=== PATIENT | female | born 2000 | race Caucasian/White ===

== ENCOUNTER 2023-05-12 09:55 | Outpatient (OUT) | payer BC, OTHER, SELFPAY ==
--- NOTE | 2023-05-12 09:57 | US_ITS ---
[address] [address] Patient Name: MENDY LUKE MRN: [id number] date: 2000 Sex: F Assigned Patient Location: US Current Patient Location: US Accession/Order Number: [id number] Exam Date: 05/12/2023 09:56 Report Date: 05/12/2023 10:39 At the request of: LAURA SCHULTZ Procedure: US OB growth EXAMINATION: US OB growth HISTORY: SIZE INCONSISTENT WITH DATES COMPARISON: Ultrasound growth 04/14/2023 FINDINGS: Heart Rate: 143.0 bpm Number: 1.0 Position: BREECH Amniotic Fluid Volume: 16.2 cm Maximum Vertical Pocket: 5.4 cm BIOMETRY: BPD: 7.3 cm cm; 29 weeks 2 days HC: 27.2 cmcm; 29 weeks 5 days AC: 24.8 cm cm; 29 weeks 0 days FL: 5.1 cm cm; 27 weeks 3 days EFW: 1243.1 grams; 47% FL/AC: 20.6 FL/BPD: 70.0 HC/AC: 1.1 GESTATIONAL AGE: Age by EDC: 28 weeks 2 days KRISS by EDC: 08/02/2023 Age by US: 28 weeks 6 days KRISS by US: 07/29/2023 IMPRESSION: 1. Single live intrauterine with growth detailed above. Electronically authenticated by: JOJO BOYCE Date: 05/12/2023 10:39
== END 2023-05-12 09:56 ==
PROVIDERS: Visit Provider Obstetrics & Gynecology
DX: O28.5 Abnormal chromosomal and genetic finding on antenatal screening of mother (principal)
CPT/HCPCS: 76816

== ENCOUNTER 2023-06-08 07:23 | Outpatient (OUT) | payer BC, OTHER, SELFPAY ==
--- NOTE | 2023-06-08 14:54 | US_ITS ---
[address] [address] Patient Name: MENDY LUKE MRN: [id number] date: 2000 Sex: F Assigned Patient Location: US Current Patient Location: US Accession/Order Number: [id number] Exam Date: 06/08/2023 14:55 Report Date: 06/08/2023 16:28 At the request of: LAURA SCHULTZ Procedure: US OB growth EXAMINATION: US OB growth HISTORY: POSITIVE SCREENING FOR TRISOMY 21 COMPARISON: Ultrasound OB growth 05/12/2023 FINDINGS: Heart Rate: 144.0 bpm Number: 1.0 Position: CEPHALIC Amniotic Fluid Volume: 19.7 cm Maximum Vertical Pocket: 8.0 cm BIOMETRY: BPD: 8.2 cm cm; 33 weeks 0 days; 68% HC: 30.2 cmcm; 33 weeks 4 days; 51% AC: 32.3 cm cm; 36 weeks 2 days; >97% FL: 5.9 cm cm; 30 weeks 5 days; 8% EFW: 2370.3 grams; 94% FL/AC: 18.2 FL/BPD: 71.6 HC/AC: 0.9 GESTATIONAL AGE: Age by EDC: 32 weeks 1 days KRISS by EDC: 08/02/2023 Age by US: 33 weeks 3 days KRISS by US: 07/24/2023 US/US OB growth IMPRESSION: 1. Single live intrauterine with growth detailed above. 2. Abdominal circumference is greater than 97th percentile. Electronically authenticated by: JOJO BOYCE Date: 06/08/2023 16:28
== END 2023-06-08 07:24 ==
LOC: US 06-17 07:24
PROVIDERS: Visit Provider Obstetrics & Gynecology
DX: O28.5 Abnormal chromosomal and genetic finding on antenatal screening of mother (principal)
CPT/HCPCS: 76816

== ENCOUNTER 2023-07-03 17:26 | Observation (INO) | payer BC, OTHER, SELFPAY ==
[2023-07-03 17:52] VITALS: BP 111/70; PULSE 100
[2023-07-03 18:00] LABS: Bilirubin Urine NEGATIVE (NEGATIVE); Blood Urine TRACE-I (NEGATIVE); Glucose Urine UA NEGATIVE (NEGATIVE); Ketones Urine NEGATIVE (NEGATIVE); Leukocyte Esterase Urine LARGE (NEGATIVE); Nitrite Urine NEGATIVE (NEGATIVE); Protein Urine 30 mg/dL (NEG/TRACE); Specific Gravity Urine 1.025 (1.005-1.025); Urine Microscopic Indicated YES
[2023-07-03 18:02] LABS: Clarity Urine CLOUDY (CLEAR); Color Urine YELLOW (YELLOW)
[2023-07-03 18:04] LABS: Bacteria Urine LARGE #/HPF (NONE SEEN); Cast Seen? NONE SEEN #/LPF (NONE SEEN); Crystals Seen? None Seen #/HPF (None Seen); Mucus Urine TRACE (NONE SEEN); Squamous Epithelial Cell Urine MANY #/LPF (NONE/RARE); Urine Culture Indicated YES; WBC Urine 75-100 #/HPF (NONE SEEN)
--- NOTE | 2023-07-03 23:46 | PC.NURSE ---
1930 given dinner and pt awaiting antibiotic as ordered, given script for antibiotic
--- NOTE | 2023-07-03 23:48 | PC.NURSE ---
2034 sve unchanged, medicated with keflex and dc instructions given
== END 2023-07-03 20:34 | disposition home or self-care (01) ==
PROVIDERS: Admitting Provider Obstetrics & Gynecology; Visit Provider Obstetrics & Gynecology
DX: O26.899 Other specified pregnancy related conditions, unspecified trimester (principal); R19.7 Diarrhea, unspecified; R10.9 Unspecified abdominal pain; Z3A.00 Weeks of gestation of pregnancy not specified
CPT/HCPCS: 81001; 81003; 87086; G0378; G0379

== ENCOUNTER 2023-07-07 09:33 | Outpatient (OUT) | payer BC, OTHER, SELFPAY ==
--- NOTE | 2023-07-07 09:34 | US_ITS ---
The [address] [address] Patient Name: MENDY LUKE MRN: [id number] date: 2000 Sex: F Assigned Patient Location: US Current Patient Location: US Accession/Order Number: [id number] Exam Date: 07/07/2023 09:35 Report Date: 07/07/2023 15:21 At the request of: LAURA RYAN Procedure: US OB growth EXAMINATION: US OB growth HISTORY: SCREENING POSITIVE FOR TRISOMY 21 COMPARISON: Ultrasound OB growth 06/08/2023 FINDINGS: Heart Rate: 132.0 bpm Number: 1.0 Position: Cephalic Amniotic Fluid Volume: 9.1 cm Maximum Vertical Pocket: 4.2 cm BIOMETRY: BPD: 9.1 cm cm; 36 weeks 6 days; 78% HC: 32.9 cmcm; 37 weeks 3 days; 48% AC: 37.0 cm cm; 40 weeks 6 days; >97% FL: 6.6 cm cm; 33 weeks 6 days; 4% EFW: 3532.6 grams; 96% FL/AC: 17.8 FL/BPD: 72.4 HC/AC: 0.9 GESTATIONAL AGE: Age by EDC: 36 weeks 2 days KRISS by EDC: 08/02/2023 Age by US: 37 weeks 2 days KRISS by US: 07/26/2023 US/US OB growth IMPRESSION: 1. Single live intrauterine with growth detailed above. 2. Estimated weight is at 96th percentile. Dr. Ryan was notified of these findings by the manager support at time of imaging. Electronically authenticated by: JOJO BOYCE Date: 07/07/2023 15:21
== END 2023-07-07 09:34 | disposition home or self-care (01) ==
LOC: US 09:33
PROVIDERS: Visit Provider Obstetrics & Gynecology
DX: Z34.93 Encounter for supervision of normal pregnancy, unspecified, third trimester (principal); O28.5 Abnormal chromosomal and genetic finding on antenatal screening of mother
CPT/HCPCS: 76816; 87081

== ENCOUNTER 2023-07-07 20:35 | Outpatient (REF) | payer BC, OTHER, SELFPAY | END 2023-07-07 20:36 | disposition home or self-care (01) | LOC: LAB 20:35 | PROVIDERS: Visit Provider Obstetrics & Gynecology | DX: Z34.93 Encounter for supervision of normal pregnancy, unspecified, third trimester (principal) | CPT/HCPCS: 87081 ==

== ENCOUNTER 2023-07-08 11:43 | Outpatient (OUT) | payer BC, OTHER, SELFPAY ==
--- NOTE | 2023-07-08 11:46 | US_ITS ---
[address] [address] Patient Name: MENDY LUKE MRN: [id number] date: 2000 Sex: F Assigned Patient Location: [facility] Current Patient Location: Accession/Order Number: [id number] Exam Date: 07/08/2023 11:59 Report Date: 07/08/2023 16:04 At the request of: LAURA SCHULTZ Procedure: US OB BPP w non-stress EXAMINATION: US OB BPP w non-stress HISTORY: THIRD TRIMESTER Z34.93 COMPARISON: No relevant comparison available. TECHNIQUE: Ultrasound biophysical profile was performed in the radiology department. BREATHING MOVEMENTS: 2.0 GROSS BODY MOVEMENTS: 0.0 TONE: 2.0 QUALITATIVE AMNIOTIC FLUID VOLUME: 2.0 PRESENTATION: CEPHALIC HEART RATE: 129.2 bpm bpm. AMNIOTIC FLUID VOLUME: 10.1 cm GESTATIONAL AGE: 39 weeks 2 days CONCLUSION: Total biophysical profile score 6.0. Electronically authenticated by: JOJO BOYCE Date: 07/08/2023 16:04
[2023-07-08 12:39] VITALS: BP 124/80; PULSE 98
--- NOTE | 2023-07-08 13:47 | US_ITS ---
[address] [address] Patient Name: MENDY LUKE MRN: [id number] date: 2000 Sex: F Assigned Patient Location: [facility] Current Patient Location: Accession/Order Number: [id number] Exam Date: 07/08/2023 13:50 Report Date: 07/08/2023 16:13 At the request of: HAMMAD DÍAZ Procedure: US OB BPP w non-stress EXAMINATION: US OB BPP w non-stress HISTORY: repeat from previous today 05/05. COMPARISON: Ultrasound OB biophysical 07/08/2023 11:55 AM TECHNIQUE: Ultrasound biophysical profile was performed in the radiology department. BREATHING MOVEMENTS: 2.0 GROSS BODY MOVEMENTS: 2.0 TONE: 2.0 QUALITATIVE AMNIOTIC FLUID VOLUME: 2.0 PRESENTATION: CEPHALIC HEART RATE: 137.8 bpm bpm. AMNIOTIC FLUID VOLUME: 13.1 cm GESTATIONAL AGE: 36 weeks 3 days CONCLUSION: Total biophysical profile score 8.0. Electronically authenticated by: JOJO BOYCE Date: 07/08/2023 16:13
== END 2023-07-08 14:15 | disposition home or self-care (01) ==
LOC: US 11:44 → FBC 11:44
PROVIDERS: Visit Provider Obstetrics & Gynecology
DX: O28.5 Abnormal chromosomal and genetic finding on antenatal screening of mother (principal); Z3A.36 36 weeks gestation of pregnancy
CPT/HCPCS: 76818

== ENCOUNTER 2023-07-11 10:30 | Outpatient (RCR) | payer BC, OTHER, SELFPAY ==
[2023-07-11 10:51] VITALS: BP 132/87; PULSE 97
== END 2023-07-11 11:27 | disposition home or self-care (01) ==
LOC: FBCO 10:30
PROVIDERS: Visit Provider Obstetrics & Gynecology
DX: O28.5 Abnormal chromosomal and genetic finding on antenatal screening of mother (principal)
CPT/HCPCS: 59025

== ENCOUNTER 2023-07-13 05:01 | Inpatient (IN) | payer BC, OTHER, SELFPAY ==
[2023-07-13] VITALS (27 sets, daily range): BP systolic 108–143; BP diastolic 65–90; PULSE 58–200; RESP 16–18; TEMP 36.4–37.1
[2023-07-13 05:45] LABS: Hematocrit 33.1 % (36.0-48.0); Hemoglobin 11.5 g/dL (12.0-16.0); Mean Corpuscular HGB Conc 34.7 g/dL (29.9-35.2); Mean Corpuscular Hemoglobin 28.5 pg (26.7-34.0); Mean Corpuscular Volume 82.1 fL (81.0-99.0); Mean Platelet Volume 8.9 fL (9.5-13.5); Platelet Count 167 10^3/uL (150-450); Red Blood Count 4.03 10^6/uL (4.20-5.40); Red Cell Distribution Width 13.4 % (11.0-15.0)
[2023-07-13] MEDS: 0.9 % SODIUM CHLORIDE 1,000 ML 1000 ML IV (05:50)
[2023-07-13 06:10] LABS: Amphetamine Screen Urine NEGATIVE (NEGATIVE); Barbiturates Screen Urine NEGATIVE (NEGATIVE); Benzodiazepines Screen Urine NEGATIVE (NEGATIVE); Buprenorphine Screen Urine NEGATIVE (NEGATIVE); Cannabinoid Screen Urine NEGATIVE (NEGATIVE); Cocaine Screen Urine NEGATIVE (NEGATIVE); Methadone Screen Urine NEGATIVE (NEGATIVE); Methamphetamines Screen Urine NEGATIVE (NEGATIVE); Opiate Screen Urine NEGATIVE (NEGATIVE); Oxycodone Screen Urine NEGATIVE (NEGATIVE); Phencyclidine Screen Urine NEGATIVE (NEGATIVE); Tricyclic Antidepressant Urine NEGATIVE (NEGATIVE)
[2023-07-13] MEDS: OXYTOCIN/0.9 % SODIUM CHLORIDE 10 UNITS/500 ML PLAST..BAG 6 UNIT IV (06:20)
--- NOTE | 2023-07-13 08:15 | PC.NURSE ---
Extensive education and support given to pt. regarding pain management during labor, guided imagery, alternate stimuli, birthing ball and peanut ball available as well as portable EFM to allow for mobility.
[2023-07-13] MEDS: 0.9 % SODIUM CHLORIDE 1,000 ML 125 ML IV (13:10)
--- NOTE | 2023-07-13 15:26 | PM.OBPRCVD ---
Procedure Intrapartal events: None Induction method: per pitocin protocol Delivery augmentation: rupture of membranes and pitocin Delivery monitor: external FHT and external uterine Route of delivery: Episiotomy Description: none Laceration description: none Estimated blood loss (mL): 250 Anesthesia type: None Disposition: floor Infant Delivery date: 07/13/23 Gender: male presentation: vertex Placental delivery description: Spontaneous cord description: 3 Vessels
[2023-07-13] MEDS: KETOROLAC TROMETHAMINE 30 MG/ML VIAL IVP (16:00)
--- NOTE | 2023-07-13 19:43 | W.PC.ACHO ---
Registration Status: ADM IN Primary Language: Azerbaijani Preferred Language: Azerbaijani Active Medications Generic Name Dose Route Start Last Admin Trade Name Rachael PRN Reason Stop Dose Admin Acetaminophen 650 mg 07/13/23 15:27 Acetaminophen 325 Mg Tablet PO Q6H PRN Mild Pain Al Hydroxide/Mg Hydroxide 2,400 mg 07/13/23 15:27 Magnesium Hydroxide 2,400 Mg/10 Ml Oral.Susp PO Q6H PRN Dyspepsia Carboprost Tromethamine 250 mcg 07/13/23 05:15 Carboprost Tromethamine 250 Mcg/Ml 1 Ml Vial IM 07/14/23 15:00 Q15M PRN Bleeding Docusate Sodium 100 mg 07/14/23 09:00 Docusate Sodium 100 Mg Capsule PO BID DAMON Sodium Chloride 1,000 mls @ 125 mls/hr 07/13/23 05:15 07/13/23 15:06 Sodium Chloride 0.9% 1,000 Ml IV Infused .Q8H DAMON Infusion Oxytocin 20 unit/ Sodium 1,002 mls @ 125 mls/hr 07/13/23 15:30 07/13/23 17:05 Chloride IV 07/13/23 23:29 125 ml/hr Q8H DAMON 125 mls/hr Administration Ibuprofen 600 mg 07/13/23 15:27 Ibuprofen 600 Mg Tablet PO Q6H PRN Moderate Pain Methylergonovine Maleate 0.2 mg 07/13/23 05:15 Methylergonovine Maleate 0.2 Mg Tablet PO 07/14/23 15:00 Q4H PRN Uterine Contractility/Contract Methylergonovine Maleate 0.2 mg 07/13/23 05:15 Methylergonovine Maleate 0.2 Mg/Ml Ampule IM 07/14/23 15:00 ONCE PRN Uterine Contractility/Contract Misoprostol 600 mcg 07/13/23 05:15 Misoprostol 100 Mcg Tablet PO 07/14/23 15:00 ONCE PRN Uterine Bleeding Misoprostol 800 mcg 07/13/23 05:15 Misoprostol 100 Mcg Tablet SL 07/14/23 15:00 ONCE PRN Uterine Bleeding Misoprostol 1,000 mcg 07/13/23 05:15 Misoprostol 100 Mcg Tablet MT 07/14/23 15:00 ONCE PRN Uterine Bleeding Ondansetron HCl 4 mg 07/13/23 05:15 Ondansetron Pf 4 Mg/2 Ml Vial IV Q6H PRN Nausea And Vomiting Ondansetron HCl 4 mg 07/13/23 05:15 Ondansetron 4 Mg Rapdis Tablet SL Q6H PRN Nausea And Vomiting Senna 17.2 mg 07/13/23 22:00 Sennosides 8.6 Mg Tablet PO QHS PRN Constipation Simethicone 80 mg 07/13/23 15:27 Simethicone 80 Mg Tab.Chew PO QID PRN Abdominal Distention Temazepam 15 mg 07/13/23 22:00 Temazepam 15 Mg Capsule PO HS PRN Sleep Diet Category Date Time Status Regular Consistency Diet Diet 07/13/23 Dinner Active Consults Category Date Time Status Consult to Anesthesiology Routine Cons 07/13/23 Ordered IV Insertion/Site Date of IV Line Insertion [ 07/13/23 Short PIV (<1.75 in) 20g left Hand] IV Insertion Time [Short PIV ( 05:34 <1.75 in) 20g left Hand] Neurology Patient orientation (short person,place,time,situation list)
[2023-07-13] MEDS: IBUPROFEN 600 MG TABLET PO (21:37)
[2023-07-14] MEDS: IBUPROFEN 600 MG TABLET PO ×4 (05:15→23:50)
[2023-07-14 05:16] VITALS: BP 125/90; PULSE 68
[2023-07-14 05:53] LABS: Basophils Percent Auto 0.4 % (0.2-2.0); Eosinophils Absolute Auto 0.1 10^3/uL (0.0-0.7); Eosinophils Percent Auto 0.6 % (0.9-7.0); Hematocrit 33.1 % (36.0-48.0); Hemoglobin 11.4 g/dL (12.0-16.0); Immature Granulocytes Abs Auto 0.06 10^3/uL (0.00-0.03); Immature Granulocytes Pct Auto 0.5 % (0.0-0.5); Lymphocytes Absolute Auto 3.5 10^3/uL (1.2-3.8); Lymphocytes Percent Auto 31.3 % (20.5-60.0); Mean Corpuscular HGB Conc 34.4 g/dL (29.9-35.2); Mean Corpuscular Volume 84.2 fL (81.0-99.0); Monocytes Absolute Auto 0.8 10^3/uL (0.3-0.8); Monocytes Percent Auto 7.1 % (1.7-12.0); Neutrophils Absolute Auto 6.7 10^3/uL (1.4-6.5); Neutrophils Percent Auto 60.1 % (43.0-75.0); Platelet Count 176 10^3/uL (150-450); Red Blood Count 3.93 10^6/uL (4.20-5.40); Red Cell Distribution Width 13.7 % (11.0-15.0); White Blood Count 11.2 10^3/uL (4.0-11.0)
--- NOTE | 2023-07-14 08:33 | PM.OBPN ---
OB - PN: Subj Subjective Patient comments: no complaints Ear[place] status: doing well Exam Constitutional Vital Signs, click to edit/add: Last Vital Signs Temp 97.8 F 07/13/23 21:40 Pulse 68 07/14/23 05:16 Resp 16 07/13/23 21:40 BP 125/90 07/14/23 05:16 O2 Del Method Room Air 07/13/23 21:40 Documenting provider has reviewed patient's vital signs: yes Common normals: no apparent distress Respiratory Common normals: clear to auscultation bilaterally Cardio Common normals: regular rate and regular rhythm GI Common normals: Normal to inspection, nondistended, normoactive bowel sounds present Extremity Common normals: no clubbing, cyanosis or edema and no calf tenderness Results Labs Labs: Short CBC 07/14/23 Range/Units 05:37 WBC 11.2 H (4.0-11.0) 10^3/uL Hgb 11.4 L (12.0-16.0) g/dL Hct 33.1 L (36.0-48.0) % Plt Count 176 (150-450) 10^3/uL OB - PN: A/P Plan - Vaginal Delivery Plan: routine care, discharge home and follow up 6 weeks Time Spent with Patient Time: Total time spent is greater than 50% in coordination of care (as documented) at patient's floor/unit and/or counseling patient: Total time spent with greater than 50% in coordination of care (as documented) at patient's floor/unit and/or counseling patient: less than 15 minutes
[2023-07-14] MEDS: DOCUSATE SODIUM 100 MG CAPSULE PO ×2 (09:02→21:37)
[2023-07-14] MEDS: ACETAMINOPHEN 325 MG TABLET 650 MG PO ×2 (09:02→21:37)
[2023-07-14 09:05] VITALS: BP 118/75; PULSE 64
[2023-07-14 17:01] VITALS: BP 126/91; PULSE 75
--- NOTE | 2023-07-14 19:03 | W.PC.ACHO ---
Registration Status: ADM IN Primary Language: Moroccan Preferred Language: Moroccan Active Medications Generic Name Dose Route Start Last Admin Trade Name Freq PRN Reason Stop Dose Admin Acetaminophen 650 mg 07/13/23 15:27 07/14/23 09:02 Acetaminophen 325 Mg Tablet PO 650 mg Q6H PRN Administration Mild Pain Al Hydroxide/Mg Hydroxide 2,400 mg 07/13/23 15:27 Magnesium Hydroxide 2,400 Mg/10 Ml Oral.Susp PO Q6H PRN Dyspepsia Docusate Sodium 100 mg 07/14/23 09:00 07/14/23 09:02 Docusate Sodium 100 Mg Capsule PO 100 mg BID DAMON Administration Sodium Chloride 1,000 mls @ 125 mls/hr 07/13/23 05:15 07/13/23 15:06 Sodium Chloride 0.9% 1,000 Ml IV Infused .Q8H DAMON Infusion Ibuprofen 600 mg 07/13/23 15:27 07/14/23 17:07 Ibuprofen 600 Mg Tablet PO 600 mg Q6H PRN Administration Moderate Pain Ondansetron HCl 4 mg 07/13/23 05:15 Ondansetron Pf 4 Mg/2 Ml Vial IV Q6H PRN Nausea And Vomiting Ondansetron HCl 4 mg 07/13/23 05:15 Ondansetron 4 Mg Rapdis Tablet SL Q6H PRN Nausea And Vomiting Senna 17.2 mg 07/13/23 22:00 Sennosides 8.6 Mg Tablet PO QHS PRN Constipation Simethicone 80 mg 07/13/23 15:27 Simethicone 80 Mg Tab.Chew PO QID PRN Abdominal Distention Temazepam 15 mg 07/13/23 22:00 Temazepam 15 Mg Capsule PO HS PRN Sleep Respiratory Lung sounds [Bilateral clear Throughout] Oxygen Delivery Method Room Air Oxygen Delivery Method Room Air Cardiology Heart Sounds Strong,Regular Bowels Bowel Pattern No Bowel Movement Renal Bladder Pattern Continent
[2023-07-14 23:49] VITALS: BP 104/60; PULSE 73
[2023-07-14 23:50] VITALS: BP 104/60; PULSE 73; RESP 14; TEMP 36.6
[2023-07-15] MEDS: ACETAMINOPHEN 325 MG TABLET 650 MG PO (04:12)
[2023-07-15] MEDS: IBUPROFEN 600 MG TABLET PO ×2 (06:30→14:54)
[2023-07-15 09:53] VITALS: BP 118/72; PULSE 61
[2023-07-15] MEDS: DOCUSATE SODIUM 100 MG CAPSULE PO (09:54)
[2023-07-15 15:22] VITALS: BP 135/92; PULSE 61
--- NOTE | 2023-07-15 15:45 | PM.OBDS ---
DS: Providers Provider Date of admission: 07/13/23 05:01 Primary care physician: Non-Staff Physician, Admitting clinician: Salomon Ryan Consults: 07/13/23 Consult to Anesthesiology Routine Consulting Provider: Pierre Briseno Discharging clinician: Alanna Musa Anticipated date of discharge: 07/15/23 DS: Diagnosis Discharge Diagnosis (1) Vaginal delivery: Assessment and plan: VSS NORMAL. VOICES NO COMPLAINTS. PERINEUM INTACT. BOTTLE FEEDING. BREASTS SOFT. BABY OK FOR DISCHARGE. BONDING WELL. Plan ABOVE OB - DS: Summary Hospital Course Hospital Course: UNCOMPLICATED VAGINAL DELIVERY Time spent discussing smoking cessation with patient: 3 to 10 minutes Peripartum Data - Vaginal Delivery Laceration description: none Complications complications: none Infant Delivery method: spontaneous vaginal delivery Gender: male Discharge plan: home Status at Discharge Functional status at discharge: independent ambulation Overall status at discharge: patient is back to baseline Time Spent with Patient Time attestation: Total time spent providing and/or coordinating discharge services: Time spent: less than 30 minutes Specific discharge activities: PELVIC REST SIX WEEKS, NO SWIMMING SIX WEEKS, NO BATHTUB 4 WEEKS, MAY SHOWER, SPORTS BRA ON 20/06 TO PREVENT MILK FROM COMING IN AND NO STIMULATION, MAKE FOLLOW UP APPOINTMENT WITH PROVIDER IN SIX WEEKS, BABY TO SEE PEDS WITHIN 7 DAYS, NO SCRIPTS REQUESTED Exam Constitutional Vital Signs, click to edit/add: Last Vital Signs Temp 97.9 F 07/14/23 23:50 Pulse 61 07/15/23 15:22 Resp 14 07/14/23 23:50 BP 135/92 H 07/15/23 15:22 O2 Del Method Room Air 07/14/23 23:50 Documenting provider has reviewed patient's vital signs: yes Common normals: no apparent distress, oriented x3, no limitations, healthy appearing, alert and well nourished General appearance: cooperative, comfortable, well kempt and well developed Orientation/consciousness: Yes oriented to person, Yes oriented to place and Yes oriented to time HENMT Common normals: normocephalic and head/scalp atraumatic Eye Common normals: PERRL Pupil: accommodation reflex normal Neck & C-Spine Common normals: full ROM Respiratory Common normals: normal respiratory effort Cardio Common normals: regular rate and regular rhythm Common normals: no CVA tenderness Extremity Common normals: normal to inspection and full ROM Neuro Common normals: CN's II-XII intact bilaterally, moves all extremities, no focal motor deficits and no sensory deficits noted Psych Common normals: mental status grossly normal, thought process normal and cooperative Discharge Plan Discharge Disposition: Home, Self-Care Condition: Good Assessment: VSS NORMAL, AFEBRILE, NONFOCAL CLINICAL EXAM, VOICING NO COMPLAINTS Plan of Treatment: DISCHARGE HOME, HAS BEEN GIVEN TEACHING AND SUPPORT LITERATURE AND FOLLOW UP FOR BABY SON PROVIDED WHILE KARYOTYPING IN PROCESS FOR TRISOMY 21 Discharge Medications: Continued cephalexin 500 mg capsule 500 mg PO QID 10 Days Qty: 40 0RF Activity: resume usual activities as tolerated Activity Detail: WALKING ONLY EXERCISE FOR SIX WEEKS, NO SEX SIX WEEKS, NO BREAST STIMULATION SO MILK DOES NOT COME IN, GENERAL COVID AND RSV PRECAUTIONS GIVEN, CALL FOR PROBLEM OR CONCERNS, NO SCRIPTS NEEDED Diet: regular diet Patient Instructions: Vaginal Delivery (DC) Activity Restrictions/Additional Instructions: STATED ON PREVIOUS PAGE Forms: Vaginal Delivery - Discharge, Portal Instructions Follow Up Appointments: POST APPOINTMENT TO BE MADE SIX WEEKS FROM DELIVERY, BABY TO SEE PEDS WITHIN SEVEN DAYS Discharge location: HOME
== END 2023-07-15 16:50 | disposition home or self-care (01) | DRG 807 ==
PROVIDERS: Admitting Provider Obstetrics & Gynecology; Visit Provider Obstetrics & Gynecology
DX: O35.13X0 Maternal care for (suspected) chromosomal abnormality in fetus, Trisomy 21, not applicable or unspecified (principal); Z37.0 Single live birth; O28.5 Abnormal chromosomal and genetic finding on antenatal screening of mother; Z3A.37 37 weeks gestation of pregnancy
CPT/HCPCS: 36415; 59050; 59410; 80307; 85025; 85027; 86850; 86900; 86901; 96374; 96375; 96376

== ENCOUNTER 2023-09-05 20:54 | Outpatient (REF) | payer BC, OTHER, SELFPAY ==
[2023-09-09 13:08] LABS: Age Gdln ACOG Testing Note (.); IGP, rfx Aptima HPV ASCU Note (.)
== END 2023-09-05 20:55 | disposition home or self-care (01) ==
LOC: LAB 20:54
PROVIDERS: Visit Provider Obstetrics & Gynecology
DX: Z01.419 Encounter for gynecological examination (general) (routine) without abnormal findings (principal)
CPT/HCPCS: G0145

== ENCOUNTER 2024-09-20 20:50 | Outpatient (REF) | payer BC, OTHER, SELFPAY | END 2024-09-20 20:51 | disposition home or self-care (01) | LOC: LAB 20:50 | PROVIDERS: Visit Provider Obstetrics & Gynecology | DX: Z01.419 Encounter for gynecological examination (general) (routine) without abnormal findings (principal) | CPT/HCPCS: 88175 ==